=== PATIENT | male | born 1955 | race Caucasian/White ===

== ENCOUNTER 2016-12-22 17:08 | Emergency (ER) | payer SELFPAY ==
[2016-12-22] MEDS ORDERED: KETOROLAC TROMETHAMINE INJ/PF 30 MG/1 ML SDV IM ONE (17:39)
--- NOTE | 2016-12-22 17:42 | ER Document Report ---
HPI - HPI Pain Level: 4 Notes: Patient is a 61-year-old male with a history of osteoarthritis and hypertension who presents the ED complaining of left hand pain that radiates up his arm 1 week. Patient states that he has chronic pains in his hands as it is, but his pain has been worsening by the end of the day over the last week. Patient denies any known injury. Patient does take tramadol daily but does not help. Patient is scheduled for a follow-up with his local provider on Sunday. Patient states he has been having trouble sleeping at night and only had 5 hours of sleep this week because of the pain. Patient states he still able to use his elbow wrist and hand without any difficulties, but his symptoms stiffen up by evening. The pain is described as an ache. Denies any headache, fever, eye discharge/redness, chest pain, palpitations, syncope, cough, shortness of breath, wheeze, dyspnea, abdominal pain, nausea/vomiting/diarrhea, dysuria, numbness/tingling, muscle paralysis/weakness, or rash. - ROS Notes: REVIEW OF SYSTEMS: CONSTITUTIONAL : Denies fever, chills, or sweats. Denies recent illness. EENT: Denies eye, ear, throat, or mouth pain or symptoms. Denies nasal or sinus congestion or discharge. Denies throat, tongue, or mouth swelling or difficulty swallowing. CARDIOVASCULAR: Denies chest pain. Denies palpitations or racing or irregular heart beat. Denies ankle edema. RESPIRATORY: Denies cough, cold, or chest congestion. Denies shortness of breath, difficulty breathing, or wheezing. GASTROINTESTINAL: Denies abdominal pain or distention. Denies nausea, vomiting , or diarrhea. Denies blood in vomitus, stools, or per rectum. Denies black, tarry stools. Denies constipation. GENITOURINARY: Denies difficulty urinating, painful urination, burning, frequency, blood in urine, or discharge. MUSCULOSKELETAL: see hpi SKIN: Denies rash, lesions or sores. NEUROLOGICAL: Denies confusion or altered mental status. Denies passing out or loss of consciousness. Denies dizziness or lightheadedness. Denies headache. Denies weakness or paralysis or loss of use of either side. Denies problems with gait or speech. Denies sensory loss, numbness, or tingling. ALL OTHER SYSTEMS REVIEWED AND NEGATIVE. Dictation was performed using [employer] voice recognition software - DERM Skin Color: Normal Past Medical History - Social History Smoking Status: Never Smoker Family History: Reviewed & Not Pertinent Patient has suicidal ideation: No Patient has homicidal ideation: No - Past Medical History Cardiac Medical History: Reports: Hx Hypercholesterolemia, Hx Hypertension Renal/ Medical History: Denies: Hx Peritoneal Dialysis Musculoskeltal Medical History: Reports Hx Arthritis - Immunizations Hx Diphtheria, Pertussis, Tetanus Vaccination: Yes Vertical Provider Document - CONSTITUTIONAL Agree With Documented VS: Yes Notes: PHYSICAL EXAMINATION: GENERAL: Well-appearing, well-nourished and in no acute distress. LUNGS: Breath sounds clear to auscultation bilaterally and equal. No wheezes rales or rhonchi. HEART: Regular rate and rhythm without murmurs, rubs, gallops. Musculoskeletal: Lt UE: FROM to passive/active of the shoulder, elbow, and wrist. Strength 5+/5. Non-tender to palp. Tinel/phalen neg. Lt hand/fingers: Mild joint deformities noted to the PIP and minimally DIP jts. LROM to flexion. Strength 5+/5. Non-tender. + elicits more discomfort with flexion at the joints. No tenosynovitis or locking appreciated. N/V intact distal. Extremities: No cyanosis, clubbing, or edema b/l. Peripheral pulses 2+. Capillary refill less than 3 seconds. NEUROLOGICAL: Normal sensory, motor exams PSYCH: Normal mood, normal affect. SKIN: Warm, Dry, normal turgor, no rashes or lesions noted. - INFECTION CONTROL TRAVEL OUTSIDE OF THE [place] IN LAST 30 DAYS: No - RESPIRATORY O2 Sat by Pulse Oximetry: 98 Course - Re-evaluation Re-evalutation: 12/22/16 17:48 Patient is an afebrile, well-hydrated, 61-year-old male who presents the ED with left hand/finger pains, suspect osteoarthritis based on H&P today. Vitals are stable. PE otherwise unremarkable. No imaging warranted today. Low suspicion for any sepsis, tenosynovitis, septic joint, compartment syndrome, fracture, or other emergent/urgent condition at this time. Patient is aware that his condition can change from initial presentation and he needs to monitor symptoms closely and seek medical attention if any acute changes. Toradol 30 mg given IM today. I will send him home with a steroid taper as well as Voltaren gel. Conservative measures otherwise as reviewed in discharge. Keep your consult with your PCM on Sunday. Consider consult with orthopedics/ physical therapy. Return to the ED with any worsening/concerning symptoms otherwise as reviewed in discharge. Patient is in agreement. - Vital Signs Vital signs: Temp Pulse Resp BP Pulse Ox 97.9 F 88 20 155/83 H 98 12/22/16 17:13 12/22/16 17:13 12/22/16 17:13 12/22/16 17:13 12/22/16 17:13 Discharge - Discharge Clinical Impression: Left hand pain Osteoarthritis Qualifiers: Osteoarthritis location: hand Osteoarthritis type: unspecified Laterality: left Qualified Code(s): M19.042 - Primary osteoarthritis, left hand Condition: Stable Disposition: HOME, SELF-CARE Instructions: Ice & Elevation ([facility]), Osteoarthritis ([facility]), Warm Packs ([facility]) Additional Instructions: Rest, Ice, Compression, Elevation Tylenol/ibuprofen as needed Light stretches daily Strength exercises as able Moist heat and massage may help F/u with your PCP in 2-3 days for a recheck Consider consult(s) with Orthopedics/physical therapy for ongoing/worsening symptoms Return to the ED with any worsening symptoms and/or development of fever, headache, chest pain, palpitations, syncope, shortness of breath, trouble breathing, abdominal pain, n/v/d, muscle weakness/paralysis, numbness/tingling, swelling, redness, or other worsening symptoms that are concerning to you. Prescriptions: Diclofenac Sodium [Voltaren] 4 gm TP QID PRN #100 gel..gm. PRN Reason: Prednisone [Deltasone 10 mg Tablet] 10 mg PO ASDIR PRN #21 tablet PRN Reason: Forms: Elevated Blood Pressure Referrals: [facility] ([facility]) [Provider Group] - Follow up as needed ROBERT SMITH FNP [NURSE PRACTITIONER] - 12/25/16
[2016-12-22 18:33] VITALS: BP 132/85
== END 2016-12-22 18:31 | disposition home or self-care (01) ==
LOC: ER 17:08
DX: M19.042 Primary osteoarthritis, left hand (principal); G89.29 Other chronic pain; M79.642 Pain in left hand; M79.645 Pain in left finger(s); I10 Essential (primary) hypertension; Z79.891 Long term (current) use of opiate analgesic
CPT/HCPCS: 99283; 96372; J1885